=== PATIENT | female | born 1990 | race American Indian/Alaskan Native ===

== ENCOUNTER 2019-03-28 02:38 | Emergency (ER) | payer OTHER ==
[2019-03-28 02:51] LABS: Basophils # (Auto) 0.1 K/mm3 (0.0-0.1); Basophils % (Auto) 0.8 % (0.0-1.8); Eosinophils # (Auto) 0.1 K/mm3 (0.0-0.4); Hematocrit 38.3 % (30.3-42.9); Hemoglobin 12.7 gm/dl (10.1-14.3); Lymphocytes # (Auto) 3.7 K/mm3 (1.2-5.4); Mean Corpuscular HGB Conc 33 % (30-34); Mean Corpuscular Volume 77 fl (79-97); Monocytes # (Auto) 0.6 K/mm3 (0.0-0.8); Monocytes % (Auto) 7.8 % (0.0-7.3); Platelet Count 363 K/mm3 (140-440); Red Blood Count 4.97 M/mm3 (3.65-5.03); Red Cell Distribution Width 16.2 % (13.2-15.2)
[2019-03-28 03:02] LABS: INR 1.11 (0.87-1.13); Partial Thromboplastin Time 25.4 Sec. (24.2-36.6)
[2019-03-28 03:12] LABS: Alanine Aminotransferase 14 units/L (7-56); Albumin 4.3 g/dL (3.9-5); BUN/Creatinine Ratio 16; Blood Urea Nitrogen 13 mg/dL (7-17); Calcium 9.5 mg/dL (8.4-10.2); Hemolysis Index 10
[2019-03-28] MEDS ORDERED: NORCO 5/325 PO ONE (03:25)
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
[2019-03-28 03:40] VITALS: BP 144/90
[2019-03-28] MEDS ORDERED: BOOSTRIX IM ONE (04:06)
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
[2019-03-28] MEDS ORDERED: XYLOCAINE 2% INFILTRATI ONE (05:35)
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
== END 2019-03-28 06:25 | disposition home or self-care (01) ==
LOC: ED 02:38
DX: S01.511A Laceration without foreign body of lip, initial encounter (principal); S50.12XA Contusion of left forearm, initial encounter; M79.644 Pain in right finger(s); Z79.899 Other long term (current) drug therapy; Z88.1 Allergy status to other antibiotic agents; V49.49XA Driver injured in collision with other motor vehicles in traffic accident, initial encounter; Y93.89 Activity, other specified; Y92.488 Other paved roadways as the place of occurrence of the external cause; Y99.8 Other external cause status
CPT/HCPCS: 12011; 36415; 70450; 70486; 71045; 72125; 72170; 73090; 73130; 80053; 82550; 84703; 85025; 85610; 85730; 90471; 90715; 93005; 93010; 99285; G0480; 80320

== ENCOUNTER 2019-04-03 12:47 | Emergency (ER) | payer OTHER ==
[2019-04-03 13:01] VITALS: BP 136/88
--- NOTE | 2019-04-03 13:04 | Emergency Department Report ---
Chief Complaint: Laceration/Recheck/Suture Stated Complaint: SUTURE REMOVED Time Seen by Provider: 04/03/19 12:57 - HPI History of Present Illness: pt presents to Ed for suture removal of lower lip that was placed on the 3rd took antibiotics as prescribed no other cc but pain - ROS Review of Systems: Denies all other sx - Exam Physical Exam: MOUTH: healing lac to th eleft lower lip, no signs of infection noted MSE screening note: Focused history and physical exam performed. Due to findings the following was ordered: ED Medical Decision Making - Medical Decision Making 29 y o female presents for lac removal sutures not ready to be removed discussed iwth pt to retuen in 3-4 days for suture removal VSS ED Disposition for MSE Clinical Impression: Visit for suture removal Disposition: DC- TO HOME OR SELFCARE Is pt being admited?: No Does the pt Need Aspirin: No Condition: Stable Instructions: Abrasion (ED), Acute Wound Care (ED) Prescriptions: Ibuprofen [Motrin] 800 mg PO Q8HR #30 tablet Forms: Accompanied Note, Work/School Release Form(ED) Time of Disposition: 13:18
== END 2019-04-03 13:25 | disposition home or self-care (01) ==
LOC: ED 12:47
DX: S01.511D Laceration without foreign body of lip, subsequent encounter (principal); Z88.1 Allergy status to other antibiotic agents; X58.XXXD Exposure to other specified factors, subsequent encounter

== ENCOUNTER 2019-04-07 12:51 | Emergency (ER) | payer OTHER ==
[2019-04-07 12:58] VITALS: BP 140/92
--- NOTE | 2019-04-07 13:08 | Emergency Department Report ---
Suture/Staple Removal - HPI Chief Complaint: Laceration/Recheck/Suture Stated Complaint: STITCHES REMOVED Time Seen by Provider: 04/07/19 12:58 When Sutures or [place] Placed: 5-7 Days Ago Wound Location: lower lip ED Review of Systems ROS: Stated complaint: STITCHES REMOVED Other details as noted in HPI Comment: All other systems reviewed and negative ED Past Medical Hx - Past Medical History Previous Medical History?: No - Surgical History Past Surgical History?: No - Social History Smoking Status: Never Smoker Substance Use Type: None - Medications Home Medications: Home Medications Medication Instructions Recorded Confirmed Last Taken Type HYDROcodone/APAP 5-325 [[place] 1 each PO Q6HR PRN #12 tablet 03/28/19 Unknown Rx 5/325] Sulfamethoxazole/Trimethoprim 1 each PO BID #10 tablet 03/28/19 Unknown Rx [Bactrim DS TAB] Ibuprofen [Motrin] 800 mg PO Q8HR #30 tablet 04/03/19 Unknown Rx Suture Removal Exam - Exam General: Vital signs noted. No distress. Alert and acting appropriately. Wound: No Pathologic Erythema, No Tenderness, No Drainage, No Pus, No Wound Dehiscence Other Systems: All other systems reviewed and are unremarkable. ED Course Vital Signs 04/07/19 12:56 Temperature 97.6 F Pulse Rate 91 H Respiratory 16 Rate Blood Pressure 140/92 O2 Sat by Pulse 99 Oximetry ED Recheck MDM - Differential Diagnosis Suture/Staple Removal Critical care attestation.: If time is entered above; I have spent that time in minutes in the direct care of this critically ill patient, excluding procedure time. ED Disposition Clinical Impression: Encounter for removal of sutures Disposition: DC-01 TO HOME OR SELFCARE Is pt being admited?: No Does the pt Need Aspirin: No Condition: Stable Instructions: Suture Removal (ED)
== END 2019-04-07 13:21 | disposition home or self-care (01) ==
LOC: ED 12:51
DX: S01.511D Laceration without foreign body of lip, subsequent encounter (principal); Z79.899 Other long term (current) drug therapy; Z88.1 Allergy status to other antibiotic agents; X58.XXXD Exposure to other specified factors, subsequent encounter